=== PATIENT | female | born 1985 | race Two or more races ===

== ENCOUNTER 2024-06-14 06:25 | Emergency (ER) | payer OTHER ==
[~2024-06-14] VITALS: Ht 157.5 cm; Wt 70.3 kg
[2024-06-14 07:07] LABS: BASOPHILS # (AUTO) 0.1 K/uL (0.0-0.2); BASOPHILS % (AUTO) 0.8 % (0.0-2.0); EOSINOPHILS # (AUTO) 0.3 K/uL (0.0-0.7); EOSINOPHILS % (AUTO) 4.1 % (0.0-6.0); HEMATOCRIT 44 % (33-45); HEMOGLOBIN 14.4 g/dL (11.5-14.8); LYMPHOCYTES # (AUTO) 2.7 K/uL (0.8-4.8); LYMPHOCYTES % (AUTO) 33.9 % (20.0-44.0); MEAN CORPUSCULAR HEMOGLOBIN 29 PG (26.0-33.0); MEAN CORPUSCULAR HGB CONC 33 g/dl (31.0-36.0); MEAN CORPUSCULAR VOLUME 87 fL (82-100); MONOCYTES # (AUTO) 0.8 K/uL (0.1-1.30); MONOCYTES % (AUTO) 9.5 % (2.0-12.0); NEUTROPHILS # (AUTO) 4.1 K/uL (1.8-8.9); NEUTROPHILS % (AUTO) 51.7 % (43.0-81.0); PLATELET COUNT (AUTO) 381 K/uL (150-450); RED BLOOD CELL COUNT(AUTO) 5.03 MIL/uL (4.0-5.2); RED CELL DISTRIBUTION WIDTH 13.5 % (11.5-15.0)
[2024-06-14 07:13] LABS: CALCIUM, SERUM 9.9 mg/dL (8.5-10.1); CREATININE 0.7 mg/dL (0.6-1.3); POTASSIUM 3.8 mmol/L (3.5-5.1)
[2024-06-14] MEDS: IV NS 0.9% 1,000 ML BAG IV ONE (07:14)
[2024-06-14] MEDS ORDERED: ONDANSETRON HCL/PF 4 MG/2 ML VIAL ONE (08:08)
[2024-06-14] MEDS ORDERED: ONDA4TAB11 PO (08:10)
[2024-06-14] MEDS: ONDANSETRON HCL/PF 4 MG/2 ML VIAL IVP ONE (08:11)
[2024-06-14 09:45] VITALS: BP 114/76; TEMP 98; O2SAT 99
== END 2024-06-14 10:22 | disposition home or self-care (01) ==
LOC: ER 06:28
DX: R11.2 Nausea with vomiting, unspecified (principal); E86.0 Dehydration; Z85.820 Personal history of malignant melanoma of skin; Z60.2 Problems related to living alone
CPT/HCPCS: 99285; 96374; 96361; 85025; 80048; 84703; 36415; J2405; J7030

== ENCOUNTER 2024-08-23 17:40 | Inpatient (IN) | payer OTHER ==
[~2024-08-23] VITALS: Ht 154.9 cm; Wt 52.2 kg
[~2024-08-23 17:40] MED LIST: ONDA4TAB11 PO
[2024-08-23] MEDS: IV NS 0.9% 1,000 ML BAG IV ONE ×2 (18:16→20:06)
[2024-08-23 19:46] LABS: BASOPHILS % (AUTO) 0.6 % (0.0-2.0); EOSINOPHILS # (AUTO) 0.4 K/uL (0.0-0.7); EOSINOPHILS % (AUTO) 5.4 % (0.0-6.0); HEMATOCRIT 47 % (33-45); HEMOGLOBIN 15.2 g/dL (11.5-14.8); LYMPHOCYTES # (AUTO) 2.2 K/uL (0.8-4.8); MEAN CORPUSCULAR HEMOGLOBIN 28 PG (26.0-33.0); MEAN CORPUSCULAR HGB CONC 32 g/dl (31.0-36.0); MEAN CORPUSCULAR VOLUME 87 fL (82-100); MONOCYTES # (AUTO) 1.5 K/uL (0.1-1.30); MONOCYTES % (AUTO) 18.6 % (2.0-12.0); NEUTROPHILS # (AUTO) 3.8 K/uL (1.8-8.9); NEUTROPHILS % (AUTO) 47.4 % (43.0-81.0); PLATELET COUNT (AUTO) 364 K/uL (150-450); RED BLOOD CELL COUNT(AUTO) 5.41 MIL/uL (4.0-5.2); RED CELL DISTRIBUTION WIDTH 16.1 % (11.5-15.0); WHITE BLOOD COUNT (AUTO) 7.9 K/uL (4.3-11.0)
[2024-08-23 19:51] LABS: ALANINE AMINOTRANSFERASE 14 U/L (12-78); ALBUMIN 2.9 g/dL (3.4-5.0); ALKALINE PHOSPHATASE 79 U/L (46-116); ASPARTATE AMINOTRANSFERASE 21 U/L (15-37); BILIRUBIN,DIRECT 0.2 mg/dL (0.0-0.2); BILIRUBIN,TOTAL 0.8 mg/dL (0.2-1.0); CALCIUM, SERUM 8.3 mg/dL (8.5-10.1); CARBON DIOXIDE 24 mmol/L (21-32); CHLORIDE 110 mmol/L (98-107); CREATININE 0.9 mg/dL (0.6-1.3); GLUCOSE 75 mg/dL (74-106); POTASSIUM 3.2 mmol/L (3.5-5.1); SODIUM SERUM 148 mmol/L (136-145); TOTAL PROTEIN, SERUM 6.5 g/dL (6.4-8.2); UREA NITROGEN, BLOOD 16 mg/dL (7-18)
[2024-08-23 20:02] LABS: LACTIC ACID 3.4 mmol/L (0.4-2.0)
[2024-08-23] MEDS: ACETAMINOPHEN ES 500 MG TABLET PO ONE (20:06)
[2024-08-23 20:24] LABS: APPEARANCE,URINE CLEAR (CLEAR); BILIRUBIN,URINE MODERATE (NEGATIVE); BLOOD, URINE Trace-intact Ery/uL (NEGATIVE); COLOR,URINE YELLOW (YELLOW); KETONES,URINE 15 mg/dL (NEGATIVE); LEUKOCYTE ESTERASE ,URINE Negative (NEGATIVE); PROTEIN,URINE 100 mg/dl (NEGATIVE); UGLUCOSE Negative (NEGATIVE); UROBILINOGEN,URINE 0.2 EU/dL (0.2)
[2024-08-23 20:25] LABS: ADD URINE CULTURE NO; BACTERIA,URINE Few /HPF (None Seen); HYALINE CASTS, URINE Few /LPF (None Seen); NITRITE, URINE NEGATIVE (NEGATIVE); SQUAMOUS EPITHELIAL CELL,UR Few /HPF (None Seen)
[2024-08-23 20:32] LABS: PREGNANCY TEST URINE QUAL NEGATIVE (NEGATIVE)
[2024-08-23] MEDS ORDERED: MAGNESIUM HYDROXIDE 30 ML UDC PO PRN (21:00)
[2024-08-23] MEDS ORDERED: MAG HYDROX/AL HYDROX/SIMETH 30 ML UDC PO PRN (21:00)
[2024-08-23] MEDS ORDERED: Potassium Chloride 20 MEQ in IV D5/0.45 NACL 1,000 ML IV ONE (21:00)
[2024-08-23] MEDS ORDERED: PIPERACILLIN /TAZOBACTAM 3.375 G in IV D5W 50 ML IV SCH (21:00)
[2024-08-23] MEDS ORDERED: ONDANSETRON HCL/PF 4 MG/2 ML VIAL IVP PRN (21:00)
[2024-08-23 21:11] LABS: LYMPHOCYTES % (MANUAL) 9 % (16-48); MONOCYTES % (MANUAL) 7 % (0-11.0); NEUTROPHILS % (MANUAL) 84 (42-76); PLATELET ESTIMATE ADEQUATE
[2024-08-23 21:12] LABS: ANISOCYTOSIS 1+
[2024-08-23] MEDS ORDERED: POTASSIUM CHLORIDE 20 MEQ TAB.PRT.SR PO ONE (21:46)
[2024-08-23] MEDS: POTASSIUM CHLORIDE 20 MEQ TAB.PRT.SR PO ONE (21:59)
[2024-08-23 22:00] VITALS: BP 130/74; TEMP 98.1; O2SAT 98
[2024-08-23] MEDS: PIPERACI/TAZO 3.375GM/D5W 50ML PB IV ONE (22:41)
[2024-08-23] MEDS: PIPERACILLIN /TAZOBACTAM 3.375 G in IV NS 0.9% 100 ML IV ONE (23:01)
[2024-08-23] MEDS: TRAZODONE 50 MG TABLET PO ONE (23:23)
[2024-08-23] MEDS: IV D5/0.45 NACL 1,000 ML IV ONE (23:24)
[2024-08-24] VITALS (8 sets, daily range): BP systolic 88–109; BP diastolic 51–75; TEMP 97.7–102.6; O2SAT 95–100
[2024-08-24] MEDS: ACETAMINOPHEN 325 MG TABLET PO PRN (03:57)
[2024-08-24] MEDS: IV NS 0.9% 1,000 ML BAG IV ONE (04:12)
[2024-08-24] MEDS: PANTOPRAZOLE 40 MG TABLET.DR PO SCH (07:40)
[2024-08-24] MEDS: PIPERACILLIN /TAZOBACTAM 3.375 G in IV D5W 100 ML IV SCH (07:40)
[2024-08-24 07:58] LABS: CALCIUM, SERUM 7.8 mg/dL (8.5-10.1); CREATININE 0.8 mg/dL (0.6-1.3); MAGNESIUM 1.6 mg/dL (1.8-2.4); PHOSPHORUS 3.3 mg/dL (2.5-4.9)
[2024-08-24 08:01] LABS: BASOPHILS % (AUTO) 0.3 % (0.0-2.0); EOSINOPHILS # (AUTO) 0.4 K/uL (0.0-0.7); EOSINOPHILS % (AUTO) 7.2 % (0.0-6.0); HEMATOCRIT 45 % (33-45); HEMOGLOBIN 14.5 g/dL (11.5-14.8); LYMPHOCYTES # (AUTO) 2.1 K/uL (0.8-4.8); MEAN CORPUSCULAR HEMOGLOBIN 28 PG (26.0-33.0); MEAN CORPUSCULAR HGB CONC 32 g/dl (31.0-36.0); MEAN CORPUSCULAR VOLUME 88 fL (82-100); MONOCYTES # (AUTO) 1.5 K/uL (0.1-1.30); MONOCYTES % (AUTO) 25.9 % (2.0-12.0); NEUTROPHILS # (AUTO) 1.8 K/uL (1.8-8.9); NEUTROPHILS % (AUTO) 30.6 % (43.0-81.0); PLATELET COUNT (AUTO) 256 K/uL (150-450); RED BLOOD CELL COUNT(AUTO) 5.13 MIL/uL (4.0-5.2); RED CELL DISTRIBUTION WIDTH 16.4 % (11.5-15.0); WHITE BLOOD COUNT (AUTO) 5.8 K/uL (4.3-11.0)
[2024-08-24 08:46] LABS: LACTIC ACID 2.8 mmol/L (0.4-2.0)
[2024-08-24] MEDS ORDERED: HYDR5TAB PO ×2 (08:55)
[2024-08-24] MEDS: MAGNESIUM OXIDE 400 MG TABLET PO ONE (09:24)
[2024-08-24] MEDS: POTASSIUM CHLORIDE 20 MEQ TAB.PRT.SR PO SCH (10:10)
[2024-08-24 11:52] LABS: BAND % (MANUAL) 2 % (0.0-5.0); EOSINOPHILS % (MANUAL) 6 % (0-4); LYMPHOCYTES % (MANUAL) 39 % (16-48); MONOCYTES % (MANUAL) 20 % (0-11.0); NEUTROPHILS % (MANUAL) 33 (42-76); PLATELET ESTIMATE ADEQUATE
[2024-08-24] MEDS: IV NS 0.9% 1,000 ML IV PRN (15:29)
[2024-08-24] MEDS: ACIDOPHILUS/BULGARICUS 1 EACH TAB.CHEW PO SCH (16:09)
[2024-08-25] VITALS (8 sets, daily range): BP systolic 77–129; BP diastolic 67–87; TEMP 97.5–98.6; O2SAT 98–100
[2024-08-25 07:52] LABS: BASOPHILS % (AUTO) 0.4 % (0.0-2.0); EOSINOPHILS # (AUTO) 0.5 K/uL (0.0-0.7); EOSINOPHILS % (AUTO) 5.4 % (0.0-6.0); HEMATOCRIT 40 % (33-45); HEMOGLOBIN 13.7 g/dL (11.5-14.8); LYMPHOCYTES # (AUTO) 2.6 K/uL (0.8-4.8); MEAN CORPUSCULAR HEMOGLOBIN 30 PG (26.0-33.0); MEAN CORPUSCULAR HGB CONC 34 g/dl (31.0-36.0); MEAN CORPUSCULAR VOLUME 86 fL (82-100); MONOCYTES # (AUTO) 1.7 K/uL (0.1-1.30); MONOCYTES % (AUTO) 20.3 % (2.0-12.0); NEUTROPHILS # (AUTO) 3.6 K/uL (1.8-8.9); NEUTROPHILS % (AUTO) 42.9 % (43.0-81.0); PLATELET COUNT (AUTO) 287 K/uL (150-450); RED BLOOD CELL COUNT(AUTO) 4.61 MIL/uL (4.0-5.2); RED CELL DISTRIBUTION WIDTH 15.7 % (11.5-15.0); WHITE BLOOD COUNT (AUTO) 8.4 K/uL (4.3-11.0)
[2024-08-25 08:12] LABS: ALBUMIN 2.1 g/dL (3.4-5.0); BILIRUBIN,TOTAL 1.1 mg/dL (0.2-1.0); CREATININE 0.7 mg/dL (0.6-1.3); POTASSIUM 2.9 mmol/L (3.5-5.1); TOTAL PROTEIN, SERUM 5.3 g/dL (6.4-8.2)
[2024-08-25 09:10] LABS: CALCIUM, SERUM 7.7 mg/dL (8.5-10.1)
[2024-08-25] MEDS ORDERED: CT SWABBABLE VALVE TRANS SET 1 EA INFUS.SET MC ONE (11:11)
[2024-08-25] MEDS ORDERED: IOHEXOL-300 100 ML VIAL IV ONE (11:11)
[2024-08-25] MEDS ORDERED: IV NS 0.9% 250 ML IV ONE (11:12)
[2024-08-25] MEDS: POTASSIUM CHLORIDE 20 MEQ TAB.PRT.SR PO ONE ×2 (12:02→13:23)
[2024-08-25] MEDS: Magnesium 1GM/D5W 100ML PREMIX 100 ML IV SCH (12:03)
[2024-08-25] MEDS: VANCOMYCIN HCL 125 MG/2.5 ML ORAL.SUSP PO SCH (13:22)
[2024-08-25] MEDS: IV D5/ 0.9% NACL 1,000 ML IV PRN (17:54)
[2024-08-26] VITALS: BP 110/66; TEMP 97.5; O2SAT 100
[2024-08-26 04:00] VITALS: BP 97/71; TEMP 97.3; O2SAT 99
[2024-08-26 06:06] LABS: AFP, TUMOR MARKER <1.8 ng/mL (0.0-6.4); CANCER AG, 15-3 8.6 U/mL (0.0-25.0); CARBOHYDRATE AG 19-9 <2 U/mL (0-35)
[2024-08-26 07:30] VITALS: BP 108/79; TEMP 97.7; O2SAT 100
[2024-08-26] MEDS: Z GUARD REMEDY 4 OZ OINT TP SCH (11:30)
[2024-08-26 12:19] LABS: CALCIUM, SERUM 7.4 mg/dL (8.5-10.1); CREATININE 0.5 mg/dL (0.6-1.3); POTASSIUM 3.8 mmol/L (3.5-5.1)
[2024-08-26 12:27] LABS: LACTIC ACID 1.1 mmol/L (0.4-2.0)
[2024-08-26 16:00] VITALS: BP 97/71; TEMP 97.5; O2SAT 100
[2024-08-26] MEDS: HYDROCORTISONE 5 MG TABLET PO SCH (17:48)
[2024-08-26] MEDS: METOCLOPRAMIDE HCL 10 MG/2 ML VIAL IV SCH (17:52)
[2024-08-26] MEDS: Z GUARD REMEDY 4 OZ OINT TP PRN (17:53)
[2024-08-26 20:00] VITALS: BP 99/71; TEMP 97.5; O2SAT 100
[2024-08-27] VITALS: BP 99/72; TEMP 98.2; O2SAT 100
[2024-08-27 04:00] VITALS: BP 97/70; TEMP 97.9; O2SAT 100
[2024-08-27 07:19] LABS: BASOPHILS % (AUTO) 0.5 % (0.0-2.0); EOSINOPHILS # (AUTO) 0.5 K/uL (0.0-0.7); EOSINOPHILS % (AUTO) 10.9 % (0.0-6.0); HEMATOCRIT 35 % (33-45); HEMOGLOBIN 11.7 g/dL (11.5-14.8); LYMPHOCYTES # (AUTO) 1.7 K/uL (0.8-4.8); MEAN CORPUSCULAR HEMOGLOBIN 29 PG (26.0-33.0); MEAN CORPUSCULAR HGB CONC 33 g/dl (31.0-36.0); MEAN CORPUSCULAR VOLUME 86 fL (82-100); MONOCYTES # (AUTO) 0.6 K/uL (0.1-1.30); MONOCYTES % (AUTO) 14.1 % (2.0-12.0); NEUTROPHILS # (AUTO) 1.7 K/uL (1.8-8.9); NEUTROPHILS % (AUTO) 37.5 % (43.0-81.0); PLATELET COUNT (AUTO) 283 K/uL (150-450); RED BLOOD CELL COUNT(AUTO) 4.09 MIL/uL (4.0-5.2); WHITE BLOOD COUNT (AUTO) 4.6 K/uL (4.3-11.0)
[2024-08-27 07:33] LABS: CALCIUM, SERUM 7.5 mg/dL (8.5-10.1); CREATININE 0.6 mg/dL (0.6-1.3); POTASSIUM 3.7 mmol/L (3.5-5.1)
[2024-08-27 08:00] VITALS: BP 101/72; TEMP 98.2; O2SAT 100
[2024-08-27] MEDS: HYDROCORTISONE 5 MG TABLET PO SCH (08:52)
[2024-08-27 12:00] VITALS: BP 105/75; TEMP 98.3; O2SAT 100
[2024-08-27 16:00] VITALS: BP 99/68; TEMP 98.2; O2SAT 99
[2024-08-27 21:58] VITALS: BP 100/61; TEMP 97.5; O2SAT 97
[2024-08-28 07:00] VITALS: BP 113/89; TEMP 97.7; O2SAT 98
[2024-08-28] MEDS: METRONIDAZOLE 500MG/ NS 100ML 500 MG in PREMIX 1 EA IV SCH (12:01)
[2024-08-28 16:00] VITALS: BP 110/79; TEMP 97.9; O2SAT 100
[2024-08-28 20:00] VITALS: BP 120/87; TEMP 98.6; O2SAT 98
[2024-08-29 08:00] VITALS: BP 119/85; TEMP 98.5; O2SAT 98
[2024-08-29 16:22] VITALS: BP 127/74; TEMP 98.2; O2SAT 99
== END 2024-08-29 17:00 | disposition home or self-care (01) | DRG 720 ==
LOC: ER 17:42 → TELE 20:50 → MED 08-27 14:12
PROVIDERS: ATTEND Nurse Practitioner Acute Care
DX: A41.9 Sepsis, unspecified organism (principal); E43 Unspecified severe protein-calorie malnutrition; E87.0 Hyperosmolality and hypernatremia; C43.9 Malignant melanoma of skin, unspecified; E87.20 Acidosis, unspecified; R64 Cachexia; A04.71 Enterocolitis due to Clostridium difficile, recurrent; E86.0 Dehydration; E27.40 Unspecified adrenocortical insufficiency; E86.1 Hypovolemia; E87.6 Hypokalemia; E88.09 Other disorders of plasma-protein metabolism, not elsewhere classified; G90.89 Other disorders of autonomic nervous system; R53.1 Weakness; Z79.52 Long term (current) use of systemic steroids; Z68.21 Body mass index [BMI] 21.0-21.9, adult; R07.9 Chest pain, unspecified; C78.7 Secondary malignant neoplasm of liver and intrahepatic bile duct
CPT/HCPCS: 36415; 70450-TC; 71045-TC; 71260-TC; 76641-TC; 80048-TC; 80053-TC; 80076-TC; 81001; 82105; 82378; 83605-TC; 83615-TC; 83735-TC; 84100-TC; 84484-TC; 84703-TC; 85025-TC; 85378-TC; 86300; 86301; 87040-TC; 93307-TC; 97112-TC; 97116-TC; 97530-TC; A4216; A4223; G0378; J2543; J2765; J3475; J3480; J3490; J7030; J7042; J7050; J7060; Q9967

== ENCOUNTER 2024-10-22 15:22 | Emergency (ER) | payer OTHER ==
[~2024-10-22] VITALS: Ht 154.9 cm; Wt 50.8 kg
[~2024-10-22 15:22] MED LIST changes: +HYDR5TAB PO; -ONDA4TAB11 PO
[2024-10-22] MEDS ORDERED: ONDANSETRON HCL/PF 4 MG/2 ML VIAL ONE (16:09)
[2024-10-22] MEDS ORDERED: FAMOTIDINE/PF INJ 20 MG/2 ML VIAL IV ONE (16:10)
[2024-10-22] MEDS: IV NS 0.9% 1,000 ML BAG IV ONE (16:18)
[2024-10-22] MEDS: FAMOTIDINE/PF INJ 20 MG/2 ML VIAL IV ONE (16:19)
[2024-10-22] MEDS: ONDANSETRON HCL/PF 4 MG/2 ML VIAL IVP ONE (16:19)
[2024-10-22 16:25] LABS: PLATELET COUNT (AUTO) 243 K/uL (150-450); RED BLOOD CELL COUNT(AUTO) 4.06 MIL/uL (4.0-5.2); RED CELL DISTRIBUTION WIDTH 15.2 % (11.5-15.0); WHITE BLOOD COUNT (AUTO) 15.2 K/uL (4.3-11.0)
[2024-10-22 16:34] LABS: CALCIUM, SERUM 8.6 mg/dL (8.5-10.1); CREATININE 0.6 mg/dL (0.6-1.3); SODIUM SERUM 142.0 mmol/L (136-145); UREA NITROGEN, BLOOD 12.0 mg/dL (7-18)
[2024-10-22 16:41] LABS: APPEARANCE,URINE CLEAR (CLEAR); BLOOD, URINE NEGATIVE Ery/uL (NEGATIVE); LEUKOCYTE ESTERASE ,URINE NEGATIVE (NEGATIVE); NITRITE, URINE NEGATIVE (NEGATIVE); UGLUCOSE NEGATIVE (NEGATIVE)
[2024-10-22 16:41] LABS: ASPARTATE AMINOTRANSFERASE 21.0 U/L (15-37); TOTAL PROTEIN, SERUM 6.6 g/dL (6.4-8.2)
[2024-10-22 16:43] LABS: PREGNANCY TEST URINE QUAL NEGATIVE (NEGATIVE)
[2024-10-22] MEDS ORDERED: ONDA4TAB5 PO (17:58)
[2024-10-22 18:40] VITALS: BP 100/66; TEMP 98; O2SAT 99
== END 2024-10-22 18:41 | disposition home or self-care (01) ==
LOC: ER 15:22
DX: R11.2 Nausea with vomiting, unspecified (principal); R10.2 Pelvic and perineal pain; Z85.820 Personal history of malignant melanoma of skin
CPT/HCPCS: 99284; 96374; 96361; 96375; 93005; 85025; 80048; 83690; 80076; 84703; 81003; 36415; 84702; J1308; J2405; J7030; 87086-TC